=== PATIENT | male | born 2000 | race Caucasian/White ===

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

== ENCOUNTER 2019-05-10 16:41 | Emergency (ER) | payer MEDICAID, OTHER ==
[~2019-05-10] VITALS: Ht 165.1 cm; Wt 59.1 kg
[~2019-05-10 16:41] MED LIST changes: -ARIP2 PO; +DOCU-275 PO; +ESTR-95 PO; +FINA-27 PO; +FLUO-191 PO; +NAPR-1025 PO; +OMEP20 PO
[2019-05-10 18:48] LABS: INFLUENZA TYPE A NEGATIVE FOR TYPE A (NEGATIVE); INFLUENZA TYPE B NEGATIVE FOR TYPE B (NEGATIVE)
[2019-05-10 19:45] VITALS: BP 110/60
== END 2019-05-10 19:54 | disposition home or self-care (01) ==
LOC: EMS 16:53
DX: J40 Bronchitis, not specified as acute or chronic (principal); F32.9 Major depressive disorder, single episode, unspecified; F12.90 Cannabis use, unspecified, uncomplicated; Z20.828 Contact with and (suspected) exposure to other viral communicable diseases
CPT/HCPCS: 87635; 87804

== ENCOUNTER 2019-09-07 15:42 | Inpatient (IN) | payer MEDICAID ==
[~2019-09-07] VITALS: Ht 167.6 cm; Wt 64.0 kg
[2019-09-07 17:37] VITALS: BP 104/59
[2019-09-07] MEDS ORDERED: HALOPERIDOL 5 MG TABLET PO PRN (17:45)
[2019-09-07] MEDS ORDERED: ZOLPIDEM TARTRATE 10 MG TABLET PO PRN (17:45)
[2019-09-07] MEDS ORDERED: LORazepam 2 MG TABLET PO PRN (17:45)
[2019-09-07 19:00] VITALS: BP 100/68
[2019-09-07] MEDS ORDERED: ACETAMINOPHEN 325 MG TABLET PO PRN (19:30)
[2019-09-07] MEDS ORDERED: FINA5TAB41 PO (20:50)
[2019-09-07] MEDS ORDERED: ESTR2TAB5 PO (20:50)
[2019-09-08 00:50] VITALS: BP 115/72
[2019-09-08] MEDS: FINASTERIDE 5 MG TABLET PO SCH (08:13)
[2019-09-08] MEDS: ESTRADIOL 1 MG TABLET PO SCH ×3 (08:13→16:29)
[2019-09-08] MEDS ORDERED: DOCUSATE SODIUM 100 MG CAPSULE PO PRN (08:30)
[2019-09-08] MEDS ORDERED: NICOTINE 14 MG/24 HOUR PATCH TD PRN (08:30)
[2019-09-08] MEDS ORDERED: ALBUTEROL SULFATE HFA 90 MCG/PUFF 8 GM INHALER IH PRN (08:30)
[2019-09-08] MEDS ORDERED: MAG HYDROX/AL HYDROX/SIMETH ES 30 ML SUSPENSION UDCUP PO PRN (08:30)
[2019-09-08] MEDS ORDERED: GuaiFENesin/D-METHORPHAN [SUGAR-FREE] 200-20MG/10 ML SYRUP UDCUP PO PRN (08:30)
[2019-09-08] MEDS ORDERED: PETROLATUM,WHITE 28 GM JELLY TP PRN (08:30)
[2019-09-08] MEDS ORDERED: LOPERAMIDE HCL 2 MG CAPSULE PO PRN (08:30)
[2019-09-08] MEDS ORDERED: ACETAMINOPHEN 325 MG TABLET PO PRN (08:30)
[2019-09-08] MEDS ORDERED: ONDANSETRON HCL 4 MG TABLET PO PRN (08:30)
[2019-09-08] MEDS ORDERED: CloNIDine HCL 0.1 MG TABLET PO PRN (08:30)
[2019-09-08] MEDS ORDERED: IBUPROFEN 400 MG TABLET PO PRN (08:30)
[2019-09-08] MEDS ORDERED: MAGNESIUM HYDROXIDE SUSPENSION 30 ML UDCUP PO PRN (08:30)
[2019-09-08 09:13] VITALS: BP 93/62
[2019-09-08] MEDS: ESCITALOPRAM OXALATE 10 MG TABLET PO SCH (13:00)
[2019-09-08] MEDS ORDERED: ESCITALOPRAM OXALATE 20 MG TABLET PO SCH (13:00)
[2019-09-08 16:21] VITALS: BP 104/62
[2019-09-08 22:47] VITALS: BP 116/66
[2019-09-09 03:08] VITALS: BP 109/67
[2019-09-09 08:00] VITALS: BP 101/65
[2019-09-09] MEDS: FINASTERIDE 5 MG TABLET PO SCH (11:00)
[2019-09-09] MEDS: ESCITALOPRAM OXALATE 10 MG TABLET PO SCH (11:00)
[2019-09-09] MEDS: ESTRADIOL 1 MG TABLET PO SCH ×3 (11:01→17:22)
[2019-09-09 16:21] VITALS: BP 100/61
[2019-09-10 08:00] VITALS: BP 93/56
[2019-09-10] MEDS: FINASTERIDE 5 MG TABLET PO SCH (08:20)
[2019-09-10] MEDS: ESTRADIOL 1 MG TABLET PO SCH ×2 (08:20→12:27)
[2019-09-10] MEDS: ESCITALOPRAM OXALATE 10 MG TABLET PO SCH ×2 (08:21→08:27)
[2019-09-10 09:31] VITALS: BP 85/55
[2019-09-10 12:29] VITALS: BP 105/69
[2019-09-10] MEDS ORDERED: ESCI-8 PO (15:32)
== END 2019-09-10 16:45 | disposition home or self-care (01) | DRG 885 ==
LOC: B2S 16:15 → 3EI 09-08 22:32
DX: F33.2 Major depressive disorder, recurrent severe without psychotic features (principal); R45.851 Suicidal ideations; J44.9 Chronic obstructive pulmonary disease, unspecified; F17.200 Nicotine dependence, unspecified, uncomplicated; E78.5 Hyperlipidemia, unspecified; E87.6 Hypokalemia; I10 Essential (primary) hypertension; K59.00 Constipation, unspecified; F64.1 Dual role transvestism
CPT/HCPCS: Z7610